=== PATIENT | male | born 1985 | race American Indian/Alaskan Native ===

== ENCOUNTER 2017-06-19 07:53 | Emergency (ER) | payer OTHER ==
[2017-06-19 07:59] VITALS: BP 117/81
[2017-06-19] MEDS ORDERED: TORADOL IM ONE (09:58)
--- NOTE | 2017-06-19 09:58 | Emergency Department Report ---
ED Back Pain/Injury HPI - General Chief Complaint: Back Pain/Injury Stated Complaint: BACK SPAMS/PAIN Time Seen by Provider: 06/19/17 09:36 Source: patient, family Limitations: No Limitations - History of Present Illness Initial Comments: Patient reports that he has upper left back pain. He said he has injured his trapezius muscle in the past and yesterday he slipped and fell and he is still having pain to that side. He felt like he pulled a muscle. Denies any nausea or vomiting. Denies any radiation of pain to her extremities. Denies any neck pain or headache. Denies any lower or mid back pain. Pain is localized to his trapezius muscle which is injured in the past. Pain is 9 out of 10 achy. Patient is accident for steroid and Toradol shot. MD Complaint: back pain, back injury Onset/Timin -: days(s) Similar Symptoms Previously: Yes Place: street Radiation: none Severity: severe Severity scale (0 -10): 9 Quality: aching Consistency: intermittent Improves With: immobilization Worsens With: movement Context: while lifting Associated Symptoms: denies other symptoms Treatments Prior to Arrival: other medications - Related Data Previous Rx's Medication Instructions Recorded Last Taken Type Cyclobenzaprine [Flexeril] 10 mg PO TID PRN #12 tablet 06/19/17 Unknown Rx Ketorolac [Toradol] 10 mg PO Q8H PRN #12 tablet 06/19/17 Unknown Rx Allergies Allergy/AdvReac Type Severity Reaction Status Date / Time No Known Allergies Allergy Unverified 06/19/17 07:55 ED Review of Systems ROS: Stated complaint: BACK SPAMS/PAIN Other details as noted in HPI Comment: All other systems reviewed and negative Constitutional: no symptoms reported ENT: denies: throat pain, congestion Respiratory: no symptoms reported Cardiovascular: denies: chest pain, palpitations, dyspnea on exertion, edema, syncope, paroxysmal nocturnal dyspnea Gastrointestinal: denies: abdominal pain, nausea, vomiting, diarrhea, constipation, hematemesis, melena, hematochezia Genitourinary: denies: dysuria, hematuria, testicular pain, testicular mass Skin: denies: rash Neurological: denies: headache, weakness, numbness, paresthesias, confusion, abnormal gait, vertigo ED Past Medical Hx - Past Medical History trapezius pain Surgical history: other (abdominal surgery) Psychiatric history: no pertinent history Family history: hypertension - Social History Smoking Status: Never Smoker Alcohol use: none Drug use: none ED Back Pain Physical Exam - Exam General: Vital signs noted. No distress. Alert and acting appropriately. This is a 32-year-old male well-nourished well-developed in no acute distress. Lungs: Clear Auscultate bilaterally, no rhonchi wheezes or rales Extremity:No Clubbing, cyanosis or edema. +2 pulses all extremities CV: S1, S2. Regular rate and rhythm and negative for murmur Back/Abdomen: No Abdominal Tenderness (nontender to palpate in all quadrants), No Perithoracic Tenderness, No Perilumbar Tenderness, No Sacroiliac Tenderness, No Flank Tenderness, No Straight Leg Raise Pain (negative straight leg raises and negative saddle anesthesia) Neuro: Yes Normal Sensation, Yes Normal DTR's, Yes Normal Gait, No Motor Weakness ED Course Vital Signs 06/19/17 07:55 Temperature 98.7 F Pulse Rate 78 Respiratory 20 Rate Blood Pressure 117/81 O2 Sat by Pulse 98 Oximetry - Reevaluation(s) Reevaluation #1: 06/19/17 10:39 Patient given Toradol 30 mg IM and Decadron 10 mg IM for back muscle pain. ED Medical Decision Making - Medical Decision Making ED course: Pt with reinjury of the trapezius muscle to upper back yesterday. He is complaining the pain. He was given Toradol 30 mg IM and Decadron 10 mg IM in emergency room for pain. Patient and is stable at present. Back exam is normal. Neurological exam is normal. I discussed patient that he needs to follow up with orthopedic doctor for further evaluation and treatment. Patient voiced understanding and discharged home with prescription for Toradol and Flexeril. Critical care attestation.: If time is entered above; I have spent that time in minutes in the direct care of this critically ill patient, excluding procedure time. ED Disposition Clinical Impression: Injury of muscle of upper back Upper back strain Qualifiers: Encounter type: initial encounter Qualified Code(s): S29.012A - Strain of muscle and tendon of back wall of thorax, initial encounter Disposition: TO HOME OR SELFCARE Is pt being admited?: No Does the pt Need Aspirin: No Condition: Stable Instructions: Core Strengthening Exercises (GEN), Back Pain (ED), Muscle Strain (ED) Additional Instructions: Please rest for 72 hours See discharge instructions on core exercises. Follow-up with orthopedic doctor as instructed Take Flexeril and Toradol for pain but please do not drive or operate heavy machinery while taking Flexeril as this is a muscle relaxer and he can cause drowsiness. Prescriptions: Cyclobenzaprine [Flexeril] 10 mg PO TID PRN #12 tablet PRN Reason: Muscle Spasm Ketorolac [Toradol] 10 mg PO Q8H PRN #12 tablet PRN Reason: Pain Referrals: PRIMARY CARE, [Primary Care Provider] - 2-3 Days FER CHRISTIE MD [Staff Physician] - 2-3 Days Forms: Work/School Release Form(ED)
[2017-06-19] MEDS ORDERED: DECADRON IM STA (09:59)
== END 2017-06-19 10:51 | disposition home or self-care (01) ==
LOC: ED 07:53
DX: S29.012A Strain of muscle and tendon of back wall of thorax, initial encounter (principal); W01.198A Fall on same level from slipping, tripping and stumbling with subsequent striking against other object, initial encounter; Y93.89 Activity, other specified; Y92.89 Other specified places as the place of occurrence of the external cause; Y99.8 Other external cause status
CPT/HCPCS: 96372; 99282; J1100; J1885